=== PATIENT | male | born 1950 | race Caucasian/White ===

== ENCOUNTER → 2022-04-30 | Outpatient (CLI) | payer MEDICARE, OTHER | LOC: COL.RAD 09:41 | DX: M16.0 Bilateral primary osteoarthritis of hip (principal); M47.816 Spondylosis without myelopathy or radiculopathy, lumbar region; M25.752 Osteophyte, left hip ==

== ENCOUNTER 2023-12-05 13:20 | Emergency (ER) | payer MEDICARE ==
[~2023-12-05] VITALS: Ht 172.7 cm; Wt 90.9 kg
[2023-12-05 13:24] VITALS: TEMP 97.1
[2023-12-05] MEDS ORDERED: Ondansetron 4 MG/2 ML VIAL IV ONE (13:45)
[2023-12-05] MEDS ORDERED: Morphine 4 MG/ML VIAL IV PRN (13:45)
[2023-12-05] MEDS ORDERED: Nitroglycerin/D5W 250 ML IV ONE (13:45)
[2023-12-05 13:50] LABS: BASO % 0.5 % (0.0-2.0); EOS # 0.1 K/mm3 (0.0-0.7); EOS % 1.4 % (0.0-4.0); GRAN # 5.9 K/mm3 (1.4-6.5); HEMATOCRIT 47.1 % (42.0-52.0); LYMPH # 1.8 K/mm3 (1.2-3.4); LYMPH % 21.6 % (20.0-51.0); MEAN CELL VOLUME 88 fl (80.0-100.0); MEAN CORPUSCULAR HEMOGLOBIN 30 pg (27-31); MEAN CORPUSCULAR HGB CONC 34 g/dl (33.0-37.0); MEAN PLATELET VOLUME 10.6 fl (7.4-10.4); MONO # 0.5 K/mm3 (0.1-0.6); MONO % 6.1 % (1.7-9.3); PLATELET COUNT 192 K/mm3 (130-400); RED BLOOD COUNT 5.35 M/mm3 (4.20-5.60); REDCELL DISTRIBUTION WIDTH-CV 13.2 % (11.5-14.5)
[2023-12-05 14:03] LABS: ALANINE AMINOTRANSFERASE 19 U/L (0-55); ALKALINE PHOSPHATASE 59 U/L (40-150); ANION GAP 13 mmol/L (7-16); AST,SGOT 23 U/L (5-34); BILIRUBIN,TOTAL 0.8 mg/dL (0.2-1.2); BLOOD UREA NITROGEN 21 mg/dL (8-26); CALCIUM 9.4 mg/dL (8.4-10.2); CARBON DIOXIDE 20 mmol/L (23-31); CHLORIDE 110 mmol/L (98-107); CREATININE, serum 1.56 mg/dL (0.72-1.25); GLUCOSE 147 mg/dL (70-99); POTASSIUM 3.5 mmol/L (3.5-4.5); SODIUM 143 mmol/L (136-145); TOTAL PROTEIN 6.9 gm/dL (6.2-8.1)
[2023-12-05 14:11] LABS: TROPONIN-I < 0.010 ng/mL (0.00-0.033)
[2023-12-05] MEDS ORDERED: Clopidogrel 300 MG DOSE (75 mg x 4 tabs) PO ONE (14:30)
[2023-12-05] MEDS ORDERED: Heparin 5,000 UNITS/ML 1 ML VIAL IV ONE (14:30)
[2023-12-05] MEDS ORDERED: Heparin 5,000 UNITS/ML 1 ML VIAL IV PRN (14:30)
[2023-12-05] MEDS ORDERED: Heparin/D5W 250 ML IV SCH (14:30)
[2023-12-05 14:39] LABS: INR 1.1 (0.8-3.0); PROTHROMBIN TIME 11.5 SECONDS (9.7-12.8)
[2023-12-05 14:42] LABS: PARTIAL THROMBOPLASTIN TIME 25.9 SECONDS (26.0-37.0)
[2023-12-05] MEDS ORDERED: droPERidol 2.5 MG/ML 2 ML VIAL IV ONE (14:45)
[2023-12-05 15:07] VITALS: BP 111/84; PULSE 86
== END 2023-12-05 15:12 | disposition short-term general hospital (02) ==
LOC: COL.ER 13:20
PROVIDERS: Personal Emergency Response Attendant
DX: I21.3 ST elevation (STEMI) myocardial infarction of unspecified site (principal)
CPT/HCPCS: J1644; J1790; J2270; J2305; J2405; J3101

== ENCOUNTER 2024-01-23 12:00 | Outpatient (RCR) | payer MEDICARE | END 2024-01-24 | disposition home or self-care (01) | LOC: COL.CR | DX: Z48.812 Encounter for surgical aftercare following surgery on the circulatory system (principal); Z98.61 Coronary angioplasty status; I25.2 Old myocardial infarction; I50.9 Heart failure, unspecified ==

== ENCOUNTER 2024-06-13 13:48 | Emergency (ER) | payer MEDICARE ==
[~2024-06-13] VITALS: Ht 172.7 cm; Wt 80.5 kg
[2024-06-13 13:59] VITALS: TEMP 97.9
[2024-06-13] MEDS ORDERED: CEPHALEXIN500 M1 PO (17:20)
[2024-06-13 17:30] VITALS: BP 108/81; PULSE 55
== END 2024-06-13 17:32 | disposition home or self-care (01) ==
LOC: COL.ER 13:48
DX: S61.211A Laceration without foreign body of left index finger without damage to nail, initial encounter (principal); S61.215A Laceration without foreign body of left ring finger without damage to nail, initial encounter; Z95.5 Presence of coronary angioplasty implant and graft; Z79.01 Long term (current) use of anticoagulants; Z79.82 Long term (current) use of aspirin; W20.8XXA Other cause of strike by thrown, projected or falling object, initial encounter